=== PATIENT | male | born 1975 ===

== ENCOUNTER 2022-10-08 20:01 | Emergency (ER) ==
[2022-10-08 21:16] LABS: SARS-CoV-2 NAA Rapid Test Not Detected (NotDetected)
== END 2022-10-08 22:54 | disposition home or self-care (01) ==
LOC: CSHERS 20:01
DX: B34.9 Viral infection, unspecified (principal); Z20.822 Contact with and (suspected) exposure to COVID-19
CPT/HCPCS: 71045